=== PATIENT | male | born 1985 | race Caucasian/White ===

== ENCOUNTER 2018-12-23 12:43 | Emergency (ER) | payer OTHER ==
[~2018-12-23] VITALS: Ht 169 cm; Wt 67.6 kg
[2018-12-23 12:53] VITALS: TEMP 98.8
[2018-12-23] MEDS ORDERED: NORCO 325 MG-51 TAB PO (14:41)
[2018-12-23 15:50] VITALS: BP 111/74; PULSE 86
== END 2018-12-23 15:55 | disposition home or self-care (01) ==
LOC: COL.ER 12:43
DX: S52.121A Displaced fracture of head of right radius, initial encounter for closed fracture (principal); W19.XXXA Unspecified fall, initial encounter; Y93.66 Activity, soccer

== ENCOUNTER → 2019-05-21 | Outpatient (CLI) | payer OTHER ==
[~2019-05-21] MED LIST: NORCO 325 MG-51 TAB PO
== END ==
LOC: COL.RAD 07:13
DX: B18.1 Chronic viral hepatitis B without delta-agent (principal)